=== PATIENT | male | born 1990 | race Caucasian/White ===

== ENCOUNTER → 2018-12-29 | Day surgery (SDC) | payer OTHER ==
[~2018-12-29] MED LIST: BENZOCAINE 20% AEROSOL SPRAY 60 GM ONE; LIDOCAINE 2% JELLY 5 ML TUBE ONE
== END ==
LOC: END 08:00
PROVIDERS: ATTEND Nurse Practitioner
DX: R69 Illness, unspecified (principal)
CPT/HCPCS: J3490